=== PATIENT | male | born 1955 | race Caucasian/White ===

== ENCOUNTER 2019-06-21 23:23 | Emergency (ER) | payer OTHER ==
[~2019-06-21] VITALS: Ht 177.8 cm; Wt 81.6 kg
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
[2019-06-21] MEDS ORDERED: HYDROCODONE/APAP 10/325MG 1 EA TABLET ONE (23:54)
--- NOTE | 2019-06-22 01:35 | NUR ---
ULTRASOUND AT BEDSIDE
--- NOTE | 2019-06-22 02:17 | NUR ---
Patient is resting comfortably in bed with eyes closed. Easily aroused. VSS
--- NOTE | 2019-06-22 03:01 | NUR ---
PT FRIEND BEBO . CALL WHEN PT GETS DISCHARGE
--- NOTE | 2019-06-22 03:01 | NUR ---
Mike colindres in [facility] - 06/22/19 at 0429 by DAI PT CHERI . CALL WHEN PT GETS DISCHARGE
--- NOTE | 2019-06-22 04:42 | NUR ---
Patient is resting comfortably in bed with eyes closed. Easily aroused. VSS
--- NOTE | 2019-06-22 06:07 | NUR ---
Patient is resting comfortably in bed with eyes closed. Easily aroused.
--- NOTE | 2019-06-22 07:45 | NUR ---
REPORT GIVEN TO JESUS MANUEL ARCINIEGA FOR JUDITH
[2019-06-22] MEDS ORDERED: HYDROCODONE/APAP 10/325MG 1 EA TABLET ONE (08:36)
--- NOTE | 2019-06-22 08:39 | NUR ---
SEEN BY ZAHRAA ROGERS, CALLED FRIEND BUT NO ANSWER. ORDERED FOOD TRAY. MEDICATION GIVEN FOR PAIN.
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
[2019-06-22] MEDS ORDERED: HYDROCODONE/APAP 10/325MG 1 EA TABLET PO ONE ×2 (09:00)
--- NOTE | 2019-06-22 09:19 | NUR ---
Patient given crutches, denies pain at this time. Ate breakfast and tolerated well. Patient given written and verbal discharge instructions. Patient verbalizes understanding of instructions. Patient is ambulatory with steady gait. Refuses offer of intermediate placement. Patient given list of available shelters in surrounding area. Refuses transportation such as tap card, attempted to call friend multiple times, but wasn't answering.
[2019-06-22 09:30] VITALS: BP 101/87
--- NOTE | 2019-06-22 09:30 | NUR ---
patient given walker instead due to safety, Patient ambulatory. No distress noted. Left the facility in stable condition.
== END 2019-06-22 09:31 | disposition home or self-care (01) ==
LOC: ER 23:23
DX: S70.11XA Contusion of right thigh, initial encounter (principal); S80.11XA Contusion of right lower leg, initial encounter; F17.200 Nicotine dependence, unspecified, uncomplicated; Z86.19 Personal history of other infectious and parasitic diseases; Z90.89 Acquired absence of other organs; W22.8XXA Striking against or struck by other objects, initial encounter; Y93.89 Activity, other specified; Y92.89 Other specified places as the place of occurrence of the external cause; Y99.8 Other external cause status
CPT/HCPCS: 93971-TC

== ENCOUNTER 2019-09-07 00:32 | Emergency (ER) | payer OTHER ==
[~2019-09-07] VITALS: Ht 179.1 cm; Wt 81.6 kg
[2019-09-07 00:32] VITALS: BP 137/76
--- NOTE | 2019-09-07 01:09 | NUR ---
PT DENIES BEING HOMELESS. PT STATES "I LIVE AT MY FRIENDS HOUSE RIGHT NOW".
== END 2019-09-07 01:15 | disposition home or self-care (01) ==
LOC: ER 00:32
DX: B86 Scabies (principal); F17.200 Nicotine dependence, unspecified, uncomplicated; Z59.0 Homelessness; Z90.89 Acquired absence of other organs

== ENCOUNTER 2020-05-14 08:20 | Emergency (ER) | payer OTHER ==
[~2020-05-14] VITALS: Ht 175.3 cm; Wt 83.9 kg
[2020-05-14 08:48] VITALS: BP 144/83
[2020-05-14] MEDS ORDERED: CYCLOBENZAPRINE 10 MG TABLET PO ONE (09:00)
[2020-05-14] MEDS ORDERED: KETOROLAC TROMETHAMINE INJ 60 MG/2 ML VIAL IM ONE (09:00)
[2020-05-14] MEDS ORDERED: DEXAMETHASONE SOD PHOSPHATE 4 MG/ML VIAL IM ONE (09:00)
[2020-05-14] MEDS ORDERED: DEXAMETHASONE SOD PHOSPHATE 10 MG/ML VIAL ONE (09:06)
[2020-05-14] MEDS ORDERED: CYCLOBENZAPRINE 10 MG TABLET ONE (09:07)
[2020-05-14] MEDS ORDERED: KETOROLAC TROMETHAMINE INJ 30 MG/ML VIAL ONE (09:07)
--- NOTE | 2020-05-14 09:14 | NUR ---
Ambulatory- gait slow. Hunched over secondary to pain - medicated as ordered
--- NOTE | 2020-05-14 09:36 | NUR ---
Patient discharged to home in stable condition. Written and verbal after care instructions given. Patient verbalizes understanding of instruction.
== END 2020-05-14 09:52 | disposition home or self-care (01) ==
LOC: ER 08:32
DX: M54.16 Radiculopathy, lumbar region (principal); M54.42 Lumbago with sciatica, left side; G89.29 Other chronic pain; Z86.19 Personal history of other infectious and parasitic diseases; Z90.89 Acquired absence of other organs; Z59.0 Homelessness
CPT/HCPCS: 96372 ×2; 99284; J1100; J1885

== ENCOUNTER → 2021-06-12 | Emergency (ER) | payer OTHER ==
[~2021-06-12] VITALS: Ht 177.8 cm; Wt 79.4 kg
[2021-06-12 07:53] VITALS: BP 150/77
--- NOTE | 2021-06-12 07:53 | NUR ---
RING STUCK TO INDEX FINGER FOR A WEEK.
--- NOTE | 2021-06-12 08:04 | NUR ---
Patient discharged to home in stable condition. Written and verbal after care instructions given. Patient verbalizes understanding of instruction.
--- NOTE | 2021-06-12 08:06 | NUR ---
[facility]NOT DEPART[facility]
== END | disposition home or self-care (01) ==
LOC: ER 08:00
DX: S60.440A External constriction of right index finger, initial encounter (principal); R22.31 Localized swelling, mass and lump, right upper limb; F17.200 Nicotine dependence, unspecified, uncomplicated; Z90.49 Acquired absence of other specified parts of digestive tract; Z59.00 Homelessness unspecified; W49.04XA Ring or other jewelry causing external constriction, initial encounter; Y93.89 Activity, other specified; Y92.89 Other specified places as the place of occurrence of the external cause; Y99.8 Other external cause status

== ENCOUNTER 2022-04-14 07:59 | Emergency (ER) | payer OTHER ==
[~2022-04-14] VITALS: Ht 177.8 cm; Wt 79.4 kg
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
[2022-04-14] MEDS ORDERED: NALO4SPR BNOSTRILS (10:04)
--- NOTE | 2022-04-14 10:30 | NUR ---
Patient discharged to home in stable condition. Written and verbal after care instructions given. Patient verbalizes understanding of instruction.
[2022-04-14 10:32] VITALS: BP 138/75
--- NOTE | 2022-04-14 10:33 | NUR ---
SS Consult: SS consult requested for homelessness, and accidental overdose. The pt. is a 46-year-old male pt. admitted for drug overdose per EMR. Upon SS consult, the pt. is Alert & Oriented x 4 and makes good eye contact. The pt. appears slightly unkempt with depressed mood & flat affect. Pt.s speech is clear and thought process is WNL. Pt. remained, calm & cooperative throughout interview. Pt. denies SI/HI and denies hallucinations. Pt denies any psychiatric diagnosis and states he does not take any medication for his mental health. SW explored pt.s living situation. Patient states he is in rapid rehousing at the moment and has a section 8 voucher and is in the process of looking for an apartment. Per pt. his rapid rehousing is located at [address] TEL:[phone]. SW explored pt.s drug & ETOH use. Pt. stated he is independent with his ADLs. SW explored pt.s support system. Pt. states he has no family involvement. Plan: SW provided homeless resources: shelters, storage, rehousing services, food malik, etc. and pt. refused them. Pt. signed homeless waiver and it was placed in the pt.s chart. SW provided pt. with bus TAP card. Year-round shelters: [place] [facility] [place] [address] ; [facility] [address] [place] [address]; [place] [facility] [address] [facility]. [facility] [address] Hygiene: [facility]: [address] [place] ; [facility] [address] [facility] ; [facility] [address] . Food Resources: [place] [facility] at [facility]- [address] [place]; Meet Each Need with Dignity ([facility]) [address] [place]; [facility] [address] [facility]; [facility] [address] [place] [address]. Mental Health resources provided: [facility] [address] [place], [place] [phone] ; [facility] [address] [facility] [address], [place], [place] [id number] ; [facility] [address] [place], [place] [phone] ; [facility] [address] [place], [place] [address] Healthcare Clinics: [facility] [address] [facility], [address] [place]. [place] ; [facility] [address] [facility] [address] [place] [address]; [facility] [address] [facility] [place] [address] [phone]) [phone] Counseling--Outpatient [facility] [address] [facility], [address] [place], [place] [address] (Specializes in in-depth psychotherapy for emotional distress: anxiety, depression, interpersonal conflicts, life transitions, childhood abuse) [facility] [address] [place], [place] [phone] (Assist with solving problem marital difficulties, separation & divorce, aging parents, & grief, chronic & terminal illness) [facility] [address] [place] [address] (Deal with loss & grief, anxiety, marital difficulties) Homebound/Mental Health Services [address] [facility], [address] [place], [place] [phone] (Provide in-home mental services to people who are incapable of leaving their homes) [facility] for Needs of the Elderly Senior Service/Resource Center [address] [facility] [place] [address] [facility] [address] [place], [place] [address] PSYCHIATRIC OUTPATIENT SERVICES [facility] Partial Hospitalization and Intensive Outpatient Program (Managed Care and Gore Only)[address] [facility] [phone] [facility] Partial Hospitalization and Outpatient [address] [place], [place] [phone] [address] SY[address] [facility] [id number] [facility]. [address] [place], [place] [phone] [facility] Randall ana Partial Hospitalization and Outpatient [id number] Em[facility] Randall Syed, [phone] Substance Abuse resources provided included: [facility] Substance Abuse Self-Helpline ([facility]) ; [facility] [address] [facility]. [place] [address] ; [facility] [address] [facility] [address] ; [facility] Rehabilitation Program [address] [facility] [address] ; [place] [address] [facility] [phone] ; [facility] Treatment [facility] [address] [facility] [address] ; [facility] [address] [facility] [phone] ; [facility] Substance Abuse Helpline([facility] ; [facility] ; [facility] [place]; [facility] [place]; [facility] [place] Syed; [facility]; [facility]; [facility] Tarcourtney; [facility] Halie Buckley; Alcoholics Anonymous -SFV; Jose ; Marijuana Anonymous -SFV; Narcotics Anonymous [email or web address];
== END 2022-04-14 10:32 | disposition home or self-care (01) ==
LOC: ER 08:01
DX: T40.711A Poisoning by cannabis, accidental (unintentional), initial encounter (principal); F17.200 Nicotine dependence, unspecified, uncomplicated; Z59.00 Homelessness unspecified; Z86.19 Personal history of other infectious and parasitic diseases; Y92.89 Other specified places as the place of occurrence of the external cause

== ENCOUNTER 2024-01-19 17:34 | Emergency (ER) | payer MEDICARE, OTHER ==
[~2024-01-19] VITALS: Ht 177.8 cm; Wt 73.9 kg
[~2024-01-19 17:34] MED LIST: NALO4SPR BNOSTRILS
[2024-01-19] MEDS ORDERED: IVERMECTIN 3 MG TABLET PO ONE (18:30)
[2024-01-19] MEDS ORDERED: PERM60CR4 TP (18:39)
[2024-01-19] MEDS ORDERED: CEPH-570 PO (18:39)
[2024-01-19] MEDS ORDERED: HYDR-500 PO (18:39)
[2024-01-19 19:00] VITALS: BP 117/71; TEMP 98.5; O2SAT 98
== END 2024-01-19 19:00 | disposition home or self-care (01) ==
LOC: ER 17:46
DX: B86 Scabies (principal); L03.818 Cellulitis of other sites; F17.200 Nicotine dependence, unspecified, uncomplicated; Z59.01 Sheltered homelessness; Z86.79 Personal history of other diseases of the circulatory system; Z90.49 Acquired absence of other specified parts of digestive tract